=== PATIENT | male | born 1990 | race Two or more races ===

== ENCOUNTER 2016-11-30 10:11 | Emergency (ER) | payer SELFPAY ==
[~2016-11-30] VITALS: Ht 177.8 cm; Wt 107.0 kg
[2016-11-30] MEDS ORDERED: MORPHINE SULFATE 4 MG/ML, 1ML ONE ×2 (10:44→11:23)
[2016-11-30] MEDS ORDERED: ONDANSETRON 2MG/ML, 2ML ONE (10:44)
[2016-11-30] MEDS: MORPHINE SULFATE 4 MG/ML, 1ML IV PRN ×2 (10:50→11:34)
[2016-11-30 10:52] LABS: HEMATOCRIT 43.9 % (39.2-51.8); HEMOGLOBIN 15.1 g/dL (13.7-18.0); WHITE BLOOD COUNT 8.2 x10^3/uL (3.4-10)
[2016-11-30 11:00] LABS: BLOOD UREA NITROGEN 17 mg/dL (7-18)
[2016-11-30] MEDS ORDERED: ONDANSETRON 2MG/ML, 2ML IVPush ONE (11:00)
[2016-11-30] MEDS ORDERED: AMPICILLIN/SULBACTAM 3 GM in SODIUM CHLORIDE 0.9% 100 ML IVPB ONE (11:00)
[2016-11-30 11:52] VITALS: BP 147/99
== END 2016-11-30 11:54 | disposition home or self-care (01) ==
LOC: ED 10:28
DX: S61.552D Open bite of left wrist, subsequent encounter (principal); L03.114 Cellulitis of left upper limb; W54.0XXD Bitten by dog, subsequent encounter
CPT/HCPCS: 36415; 73110; 80048; 82040; 83605; 85025; 96365; 96375; 96376; 99285; J0295; J2405

== ENCOUNTER 2016-12-01 10:27 | Emergency (ER) | payer OTHER ==
[~2016-12-01] VITALS: Ht 175.3 cm; Wt 108.4 kg
[2016-12-01 10:28] VITALS: BP 124/76
[2016-12-01] MEDS ORDERED: BACITRACIN ZINC OINT 500U/GM, 0.9 GM ONE (11:29)
[2016-12-01] MEDS ORDERED: BACITRACIN ZINC OINT 500U/GM, 0.9 GM TP SCH (11:30)
[2016-12-01] MEDS ORDERED: AMPICILLIN/SULBACTAM 1,500 MG IM ONE (11:30)
== END 2016-12-01 12:03 | disposition home or self-care (01) ==
LOC: ED 10:53
DX: S61.552D Open bite of left wrist, subsequent encounter (principal); W54.0XXD Bitten by dog, subsequent encounter
CPT/HCPCS: 96372; 99283; J0295

== ENCOUNTER 2017-01-07 12:01 | Day surgery (SDC) | payer BC ==
[~2017-01-07] VITALS: Ht 175.3 cm; Wt 106.0 kg
[2017-01-07] MEDS ORDERED: BUPIVACAINE/PF 0.5% ONE (12:29)
[2017-01-07] MEDS ORDERED: BUPIVACAINE/PF 0.25% ONE (12:29)
[2017-01-07] MEDS ORDERED: BACITRACIN OINT 500U/GM, 15 GM ONE (12:29)
[2017-01-07] MEDS ORDERED: EPINEPHRINE 1 MG/ML, 1ML ONE (12:34)
[2017-01-07] MEDS ORDERED: LIDOCAINE 1%, 2ML ONE (12:46)
[2017-01-07] MEDS ORDERED: LACTATED RINGERS 1,000 ML IV SCH (12:47)
[2017-01-07] MEDS ORDERED: NONE PER PT (12:49)
[2017-01-07 12:51] VITALS: BP 125/87
[2017-01-07] MEDS ORDERED: LIDOCAINE 1%, 2ML SQ PRN (13:00)
[2017-01-07] MEDS ORDERED: FENTANYL PF 250 MCG/5ML ONE (13:37)
[2017-01-07] MEDS ORDERED: MIDAZOLAM 1 MG/ML, 2ML ONE (13:37)
[2017-01-07] MEDS ORDERED: AMPICILLIN/SULBACTAM 3 GM in SODIUM CHLORIDE 0.9% 100 ML IV ONE (15:00)
[2017-01-07] MEDS ORDERED: BACITRACIN 50,000 UNIT ONE (15:07)
[2017-01-07] MEDS ORDERED: ROCURONIUM 10 MG/ML ONE (15:50)
[2017-01-07] MEDS ORDERED: SUCCINYLCHOLINE 20 MG/ML, 10ML ONE (15:50)
[2017-01-07] MEDS ORDERED: GLYCOPYRROLATE 0.2MG/1ML, 5ML ONE (15:50)
[2017-01-07] MEDS ORDERED: NEOSTIGMINE 1 MG/ML, 10ML ONE (15:50)
[2017-01-07] MEDS ORDERED: CEFAZOLIN 1,000 MG ONE (15:50)
[2017-01-07] MEDS ORDERED: PROPOFOL 10 MG/ML, 20ML ONE (15:50)
[2017-01-07] MEDS ORDERED: DEXAMETHASONE 4 MG/ML, 1ML ONE (15:50)
[2017-01-07] MEDS ORDERED: ONDANSETRON 2MG/ML, 2ML ONE (15:50)
[2017-01-07] MEDS ORDERED: FENTANYL PF 100 MCG/2ML ONE (16:21)
[2017-01-07] MEDS ORDERED: ACETAMINOPHEN 650 MG/20.3 ML UDC ONE (16:21)
[2017-01-07] MEDS ORDERED: OXYcodone 5 MG/5 ML ORAL.SOL UDC ONE (16:21)
[2017-01-07] MEDS ORDERED: OXYcodone 5 MG/5 ML ORAL.SOL UDC PO PRN (16:30)
[2017-01-07] MEDS ORDERED: KETOROLAC 30 MG/1 ML IV PRN (16:30)
[2017-01-07] MEDS ORDERED: hydrALAzine 20 MG/ML, 1ML IV PRN (16:30)
[2017-01-07] MEDS ORDERED: HYDROmorphone 1 MG/ML, 1ML IV PRN (16:30)
[2017-01-07] MEDS ORDERED: ALBUTEROL SULFATE 2.5 MG/3 ML NPPB PRN (16:30)
[2017-01-07] MEDS ORDERED: METOPROLOL 1 MG/ML, 5ML IV PRN (16:30)
[2017-01-07] MEDS ORDERED: PROMETHAZINE 25 MG/ML, 1ML IV PRN (16:30)
[2017-01-07] MEDS ORDERED: MEPERIDINE/PF 25MG/0.5ML IVPush PRN (16:30)
[2017-01-07] MEDS ORDERED: MIDAZOLAM 1 MG/ML, 2ML IV PRN (16:30)
[2017-01-07] MEDS ORDERED: ACETAMINOPHEN 325 MG TABLET PO PRN (16:30)
[2017-01-07] MEDS ORDERED: KETOROLAC 30 MG/1 ML ONE (16:34)
[2017-01-07] MEDS: FENTANYL PF 100 MCG/2ML IV PRN ×2 (16:53→17:00)
== END 2017-01-07 18:23 ==
LOC: OUT 12:01
PROVIDERS: ATTEND Orthopaedic Surgery
DX: G56.22 Lesion of ulnar nerve, left upper limb (principal); S61.512A Laceration without foreign body of left wrist, initial encounter; W54.0XXA Bitten by dog, initial encounter; Y93.89 Activity, other specified; Y92.89 Other specified places as the place of occurrence of the external cause; Y99.8 Other external cause status
CPT/HCPCS: 64719; 64856; C1763; J0171; J0690; J1100; J1885; J2250; J2405; J2704; J3010; J3490; J7120; J2710; J0330